=== PATIENT | female | born 1990 | race Caucasian/White ===

== ENCOUNTER 2018-04-14 18:32 | Emergency (ER) | payer SELFPAY ==
--- NOTE | 2018-04-14 19:00 | EDPHYS ---
Physician Documentation [facility] Name: Yesica Rae Age: 28 yrs Sex: Female : 1990 Arrival Date: 04/14/2018 Time: 18:35 Bed 17 Private MD: ED Physician Gavino Willis HPI: 04/14 18:53 This 28 yrs old Female presents to ER via Ambulatory with complaints of cp Toothache. 18:53 The patient presents with pain. The problem is located in the left lower molar. Onset: cp The symptoms/episode began/occurred over 1 month ago. Duration: The symptoms are continuous. Associated signs and symptoms: Pertinent positives: pain, Pertinent negatives: chills, dysphagia, fever, inability to eat. Patient reports recently finishing course of antibiotics but has not followed up with dentist. 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 - Social history:: Smoking status: Patient uses tobacco products, smokes one-half pack cigarettes per day. - Ebola Screening: : No symptoms or risks identified at this time. ROS: 18:55 Eyes: Negative for injury, pain, redness, and discharge. cp 18:55 Constitutional: Negative for body aches, chills, fever, poor PO intake. 18:55 ENT: Positive for dental pain, Negative for drainage from ear(s), ear pain, difficulty swallowing, difficulty handling secretions. 18:55 Respiratory: Negative for cough, shortness of breath, wheezing. 18:55 Abdomen/GI: Negative for abdominal pain, nausea, vomiting, and diarrhea. 18:55 Skin: Negative for cellulitis, rash. 18:55 All other systems are negative. Exam: 18:56 Head/Face: Normocephalic, atraumatic. cp 18:56 Constitutional: The patient appears in no acute distress, alert, awake, non-toxic, well developed, well nourished. 18:56 Eyes: Periorbital structures: appear normal, Conjunctiva: normal, Lids and lashes: appear normal, bilaterally. 18:56 ENT: External ear(s): are unremarkable, Ear canal(s): are normal, clear, TM's: bulging, is not appreciated, bilaterally, dullness, bilaterally, erythema, is not appreciated, bilaterally, Nose: is normal, Mouth: Lips: moist, Oral mucosa: pink and intact, moist, Gums: normal with healthy appearance, Tongue: is normal, abscess, is not appreciated, drooling, is not appreciated, Posterior pharynx: Airway: no evidence of obstruction, patent, Tonsils: are normal in appearance, Uvula: midline, swelling, is not appreciated, erythema, is not appreciated, exudate, is not appreciated, Dental exam: abscess, is not appreciated, fractured teeth are noted, specifically the lower left second molar (#18), gum swelling, not appreciated, pain, that is mild, specifically in the lower left second molar (#18), Voice: is normal. 18:56 Neck: ROM/movement: is normal, is supple, without pain, no range of motions limitations, no nuchal rigidity, Lymph nodes: no appreciated lymphadenopathy. Vital Signs: 18:37 BP 139 / 94; Pulse 74; Resp 18; Temp 97.8; Pulse Ox 96% ; Weight 95.25 kg; Height 5 ft. sv 3 in. (160.02 cm); Pain 10/10; 18:37 Body Mass Index 37.20 (95.25 kg, 160.02 cm) sv MDM: 18:49 Patient medically screened. cp 18:55 Differential diagnosis: dental caries, dental abscess, pericoronitis, aphthous ulcers. cp 18:58 Data reviewed: vital signs, nurses notes, and as a result, I will discharge patient. cp 18:58 Counseling: I had a detailed discussion with the patient and/or guardian regarding: the cp historical points, exam findings, and any diagnostic results supporting the discharge/admit diagnosis, the need for outpatient follow up, for definitive care, a dentist, to return to the emergency department if symptoms worsen or persist or if there are any questions or concerns that arise at home. Administered Medications: No medications were administered Disposition: 04/14/18 19:00 Discharged to Home. Impression: Jaw pain - Left Lower Molar. - Condition is Stable. - Discharge Instructions: Dental Pain. - Prescriptions for Clindamycin HCl 150 mg Oral Capsule - take 1 capsule by ORAL route every 6 hours for 10 days; 40 capsule. Diclofenac Sodium 75 mg Oral Tablet, Delayed Release (E.C.) - take 1 tablet by ORAL route 2 times per day do not take with OTC ibuprofen or naproxen; 20 tablet. - Medication Reconciliation Form, Thank You Letter, Antibiotic Education, Prescription Opioid Use form. - Follow up: Manpreet Tejada DDS; When: 2 - 3 days; Reason: Recheck today's complaints. - Problem is new. - Symptoms are unchanged. Addendum: 04/23/2018 21:06 Co-signature as Attending Physician, Gavino Willis MD. r n Signatures: Jen Clarke RN RN Gavino Gil MD MD rn Ellis Mcfarlane PA PA cp Davies, Jonathon RN RN jd3 Corrections: (The following items were deleted from the chart) 04/14 19:35 19:00 04/14/2018 19:00 Discharged to Home. Impression: Jaw pain - Left Lower Molar. jd3 Condition is Stable. Forms are Medication Reconciliation Form, Thank You Letter, Antibiotic Education, Prescription Opioid Use. Follow up: Manpreet Tejada; When: 2 - 3 days; Reason: Recheck today's complaints. Problem is new. Symptoms are unchanged. cp
--- NOTE | 2018-04-14 19:00 | ER ---
Nurse's Notes [facility] Name: Yesica Rae Age: 28 yrs Sex: Female : 1990 Arrival Date: 04/14/2018 Time: 18:35 Bed 17 Private MD: Diagnosis: Jaw pain-Left Lower Molar Presentation: 04/14 18:36 Presenting complaint: Patient states: left bottom tooth pain that started about a month sv ago. Pt was prescribed Amoxicillin and hasn't f/u with a dentist. Transition of care: patient was not received from another setting of care. Onset of symptoms was February 2018. Care prior to arrival: None. 18:36 Method Of Arrival: Ambulatory sv 18:36 Acuity: BEAU 4 sv 18:40 Risk Assessment: Do you want to hurt yourself or someone else? Patient reports no hj desire to harm self or others. Initial Sepsis Screen: Does the patient meet any 2 criteria? No. Patient's initial sepsis screen is negative. Does the patient have a suspected source of infection? No. Patient's initial sepsis screen is negative. Triage Assessment: 18:40 General: Appears in no apparent distress. uncomfortable, Behavior is calm, cooperative, hj appropriate for age. Pain: Complains of pain in tooth. EENT: Reports pain in tooth. 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 - Social history:: Smoking status: Patient uses tobacco products, smokes one-half pack cigarettes per day. - Ebola Screening: : No symptoms or risks identified at this time. Screenin:39 Abuse screen: Denies threats or abuse. Denies injuries from another. Nutritional hj screening: No deficits noted. Tuberculosis screening: No symptoms or risk factors identified. Fall Risk None identified. Assessment: 18:40 Reassessment: see triage assesment;. hj 19:03 General: Appears in no apparent distress. uncomfortable, Behavior is calm, cooperative, jd3 appropriate for age. Pain: Complains of pain in lower left second molar Pain currently is 10 out of 10 on a pain scale. Quality of pain is described as sharp. Neuro: Level of Consciousness is awake, alert, obeys commands, Oriented to person, place, time, situation, Appropriate for age. 19:03 Cardiovascular: Capillary refill < 3 seconds Patient's skin is warm and dry. jd3 Respiratory: Airway is patent Respiratory effort is even, unlabored, Respiratory pattern is regular, symmetrical. GI: No signs and/or symptoms were reported involving the gastrointestinal system. : No signs and/or symptoms were reported regarding the genitourinary system. EENT: Oral mucosa is moist. Dental caries noted in lower left second molar (#18). Derm: Skin is intact, Skin is dry, Skin is normal, Skin temperature is warm. Musculoskeletal: Circulation, motion, and sensation intact. Range of motion: intact in all extremities. 19:34 Reassessment: Patient appears in no apparent distress at this time. Patient and/or jd3 family updated on plan of care and expected duration. Pain level reassessed. Patient is alert, oriented x 3, equal unlabored respirations, skin warm/dry/pink. pt reported understanding of discharge instructions, even and steady gait upon discharge. Vital Signs: 18:37 BP 139 / 94; Pulse 74; Resp 18; Temp 97.8; Pulse Ox 96% ; Weight 95.25 kg; Height 5 ft. sv 3 in. (160.02 cm); Pain 10/10; 18:37 Body Mass Index 37.20 (95.25 kg, 160.02 cm) sv ED Course: 18:35 Patient arrived in ED. mr 18:37 Triage completed. sv 18:38 Arm band placed on right wrist. sv 18:39 David Krueger, RN is Primary Nurse. hj 18:40 Patient has correct armband on for positive identification. Bed in low position. Call hj light in reach. Side rails up X 1. 18:49 Ellis Mcfarlane PA is PHCP. cp 18:49 Gavino Willis MD is Attending Physician. cp 18:59 Manpreet Tejada DDS is Referral Physician. cp 19:06 No provider procedures requiring assistance completed. Patient did not have IV access jd3 during this emergency room visit. Administered Medications: No medications were administered Outcome: 19:00 Discharge ordered by . cp 19:32 Discharged to home ambulatory, with family. jd3 19:32 Condition: stable 19:32 Discharge instructions given to patient, family, Instructed on discharge instructions, follow up and referral plans. medication usage, Demonstrated understanding of instructions, follow-up care, medications, Prescriptions given X 2. 19:35 Patient left the ED. jd3 Signatures: Jen Clarke, RN Katie Thomas mr David Krueger RN RN hj Page, Corey, PA PA cp Davies, Jonathon, RN RN jd3
[2018-04-14 19:46] VITALS: BP 139/94; TEMP 97.8; O2SAT 96
== END 2018-04-14 19:35 | disposition home or self-care (01) ==
LOC: ER 18:32
DX: R68.84 Jaw pain (principal); K08.89 Other specified disorders of teeth and supporting structures; F17.220 Nicotine dependence, chewing tobacco, uncomplicated
CPT/HCPCS: 99282

== ENCOUNTER 2018-05-11 20:18 | Emergency (ER) | payer SELFPAY ==
[2018-05-11 21:05] LABS: Absolute Lymphocytes (CBC) 2.7 K/uL (0.7-4.9); Absolute Monocytes 0.5 K/uL (0.1-1.3); Absolute Neutrophil 5.6 K/uL (1.8-8.0); Basophils % 0.8 % (0-1.3); Eosinophils % 2.4 % (0-4.4); Hematocrit 41.1 % (36.0-45.0); Lymphocytes % 29.8 % (15.3-44.8); MCH 31.4 pg (27.0-35.0); MCV 92.7 fL (80-100); MPV 8.7 fL (7.6-11.3); Monocytes % 5.8 % (3.3-12.3); RBC Red Blood Cell Count 4.43 M/uL (3.86-4.86)
[2018-05-11 21:11] LABS: Protime INR 1.02
[2018-05-11 22:01] LABS: ALT/SGPT 25 U/L (12-78); AST/SGOT 15 U/L (15-37); Albumin 3.9 g/dL (3.4-5.0); Alkaline Phosphatase 64 U/L (45-117); BUN Blood Urea Nitrogen 17 mg/dL (7-18); Bicarbonate 26 mmol/L (21-32); Bilirubin Direct < 0.1 mg/dL (0-0.2); Bilirubin Total 0.1 mg/dL (0.2-1.0); CKMB Creatine Kinase MB < 1.0 ng/mL (0.3-3.6); Creatine Phosphokinase 71 U/L (26-192); Glucose Level 119 mg/dL (74-106); Magnesium 2.2 mg/dL (1.8-2.4); NT PRO-BNP 37 pg/mL (<125); Potassium 3.7 mmol/L (3.5-5.1); Protein, Total 7.6 g/dL (6.4-8.2); Sodium Level 143 mmol/L (136-145)
[2018-05-11 22:49] LABS: Urine Blood NEGATIVE (NEG); Urine Glucose NEGATIVE (NEG); Urine Protein NEGATIVE (NEG); Urine Specific Gravity 1.025 (1.005-1.030); Urine pH 6.5 (5.0-7.0)
--- NOTE | 2018-05-11 23:09 | ER ---
Nurse's Notes [facility] Name: Yesica Rae Age: 28 yrs Sex: Female : 1990 Arrival Date: 05/11/2018 Time: 20:21 Bed 20 Private MD: Diagnosis: Chest pain, unspecified Presentation: 05/11 20:35 Presenting complaint: Patient states: "I have been having chest pain on and off for the bs1 past week, and it goes down my left arm and sometime my right.". 20:35 Transition of care: patient was not received from another setting of care. Onset of bs1 symptoms was May 04, 2018. Risk Assessment: Do you want to hurt yourself or someone else? Patient reports no desire to harm self or others. Initial Sepsis Screen: Does the patient meet any 2 criteria? No. Patient's initial sepsis screen is negative. Does the patient have a suspected source of infection? No. Patient's initial sepsis screen is negative. Care prior to arrival: Medication(s) given: ASA, 81 mg, x 2. 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 - Social history:: Smoking status: Patient/guardian denies using tobacco. - Ebola Screening: : Patient negative for fever greater than or equal to 101.5 degrees Fahrenheit, and additional compatible Ebola Virus Disease symptoms Patient denies exposure to infectious person. Screenin:24 Abuse screen: Denies threats or abuse. Denies injuries from another. Nutritional bs1 screening: No deficits noted. Tuberculosis screening: No symptoms or risk factors identified. Fall Risk None identified. Assessment: 21:33 General: Appears in no apparent distress. uncomfortable, well groomed, Behavior is bs1 calm, cooperative, appropriate for age. Pain: Complains of pain in left side of chest Pain radiates to left arm Pain began gradually, 1 week, gradually got worse. Neuro: Level of Consciousness is awake, alert, obeys commands, Oriented to person, place, time, situation, Appropriate for age. Neuro: Reports numbness in left shoulder. Cardiovascular: Reports chest pain, Denies shortness of breath, Heart tones S1 S2 present Capillary refill < 3 seconds Patient's skin is warm and dry. Respiratory: Airway is patent Trachea midline Respiratory effort is even, unlabored, Respiratory pattern is regular, symmetrical. GI: No signs and/or symptoms were reported involving the gastrointestinal system. : No signs and/or symptoms were reported regarding the genitourinary system. EENT: No signs and/or symptoms were reported regarding the EENT system. Derm: Skin is intact. Musculoskeletal: Circulation, motion, and sensation intact. Capillary refill < 3 seconds, Range of motion: intact in all extremities. 22:00 Reassessment: Patient appears in no apparent distress at this time. Patient and/or bs1 family updated on plan of care and expected duration. Pain level reassessed. Patient is alert, oriented x 3, equal unlabored respirations, skin warm/dry/pink. Informed patient of POC/pending lab results. 23:15 Reassessment: Patient appears in no apparent distress at this time. Patient and/or bs1 family updated on plan of care and expected duration. Pain level reassessed. Patient is alert, oriented x 3, equal unlabored respirations, skin warm/dry/pink. Patient states understanding of POC/discharge instructions. Vital Signs: 20:45 BP 100 / 61; Pulse 72; Resp 23; Temp 98.3(O); Pulse Ox 96% on R/A; Weight 95.25 kg; bs1 Height 5 ft. 3 in. (160.02 cm); Pain 8/10; 21:45 BP 97 / 67; Pulse 72; Resp 16; Pulse Ox 99% on R/A; bs1 22:45 BP 105 / 68; Pulse 80; Resp 16; Pulse Ox 100% on R/A; bs1 20:45 Body Mass Index 37.20 (95.25 kg, 160.02 cm) bs1 ED Course: 20:21 Patient arrived in ED. es 20:32 Gee Donohue NP is PHCP. pm1 20:32 Hilario Vasquez MD is Attending Physician. pm1 20:42 Katerina Gil RN is Primary Nurse. bs1 20:45 Inserted saline lock: 22 gauge in right antecubital area, using aseptic technique. bs1 Blood collected. 20:54 XRAY Chest (1 view) In Process Unspecified. EDMS 20:58 Triage completed. bs1 22:00 Patient has correct armband on for positive identification. Bed in low position. Call bs1 light in reach. Side rails up X 1. quality assurance monitor on. Pulse ox on. NIBP on. 22:00 Warm blanket given. bs1 23:24 No provider procedures requiring assistance completed. Patient maintains SpO2 bs1 saturation greater than 95% on room air. 23:25 Arm band placed on right wrist. bs1 23:26 IV discontinued, bleeding controlled, No redness/swelling at site. Pressure dressing bs1 applied. Administered Medications: 23:20 Drug: TORadol 30 mg Route: IVP; Site: right antecubital; bs1 23:26 Follow up: Response: No adverse reaction bs1 Outcome: 23:07 Discharge ordered by MD. pm1 23:25 Discharged to home ambulatory, with family. bs1 23:25 Condition: stable 23:25 Discharge instructions given to patient, Instructed on discharge instructions, follow up and referral plans. Demonstrated understanding of instructions, follow-up care. 23:29 Patient left the ED. bs1 Signatures: Dispatcher [employer] EDDelicia Szymanski Patrick, MIRROR MAKER MIRROR MAKER pm1 Katerina Gil, RN RN bs1
--- NOTE | 2018-05-11 23:09 | EDPHYS ---
Physician Documentation [facility] Name: Yesica Rae Age: 28 yrs Sex: Female : 1990 Arrival Date: 05/11/2018 Time: 20:21 Bed 20 Private MD: ED Physician Hilario Vasquez HPI: 05/11 23:00 This 28 yrs old Female presents to ER via Ambulatory with complaints of Chest pm1 Pain. 23:00 The patient or guardian reports chest pain that is located primarily in the anterior pm1 aspect of right upper chest, anterior aspect of left upper chest and mid-sternal area. The pain radiates to the left shoulder. Associated signs and symptoms: Pertinent negatives: abdominal pain, diaphoresis, dizziness, headache, lightheadedness, nausea, palpitations, shortness of breath, vomiting. The chest pain is described as sharp. Duration: The patient or guardian reports a single episode, that is still ongoing, onset 7 days ago. Modifying factors: the symptoms are aggravated by Left and right arm movement. Severity of pain: in the emergency department the pain is unchanged. The patient has not experienced similar symptoms in the past. The patient has not recently seen a physician. 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 - Social history:: Smoking status: Patient/guardian denies using tobacco. - Ebola Screening: : Patient negative for fever greater than or equal to 101.5 degrees Fahrenheit, and additional compatible Ebola Virus Disease symptoms Patient denies exposure to infectious person. ROS: 23:00 Constitutional: Negative for fever, chills, and weight loss, Eyes: Negative for injury, pm1 pain, redness, and discharge, ENT: Negative for injury, pain, and discharge, Neck: Negative for injury, pain, and swelling. 23:00 Respiratory: Negative for shortness of breath, cough, wheezing, and pleuritic chest pain, Abdomen/GI: Negative for abdominal pain, nausea, vomiting, diarrhea, and constipation, Back: Negative for injury and pain, : Negative for injury, bleeding, discharge, and swelling, MS/Extremity: Negative for injury and deformity, Skin: Negative for injury, rash, and discoloration, Neuro: Negative for headache, weakness, numbness, tingling, and seizure. 23:00 Cardiovascular: Positive for chest pain, Negative for edema, palpitations. Exam: 23:00 Constitutional: This is a well developed, well nourished patient who is awake, alert, pm1 and in no acute distress. Head/Face: Normocephalic, atraumatic. Eyes: Pupils equal round and reactive to light, extra-ocular motions intact. Lids and lashes normal. Conjunctiva and sclera are non-icteric and not injected. Cornea within normal limits. Periorbital areas with no swelling, redness, or edema. ENT: Nares patent. No nasal discharge, no septal abnormalities noted. Tympanic membranes are normal and external auditory canals are clear. Oropharynx with no redness, swelling, or masses, exudates, or evidence of obstruction, uvula midline. Mucous membranes moist. Neck: Trachea midline, no thyromegaly or masses palpated, and no cervical lymphadenopathy. Supple, full range of motion without nuchal rigidity, or vertebral point tenderness. No Meningismus. Chest/axilla: Normal chest wall appearance and motion. Nontender with no deformity. No lesions are appreciated. Cardiovascular: Regular rate and rhythm with a normal S1 and S2. No gallops, murmurs, or rubs. Normal PMI, no JVD. No pulse deficits. Respiratory: Lungs have equal breath sounds bilaterally, clear to auscultation and percussion. No rales, rhonchi or wheezes noted. No increased work of breathing, no retractions or nasal flaring. Abdomen/GI: Soft, non-tender, with normal bowel sounds. No distension or tympany. No guarding or rebound. No evidence of tenderness throughout. Back: No spinal tenderness. No costovertebral tenderness. Full range of motion. Skin: Warm, dry with normal turgor. Normal color with no rashes, no lesions, and no evidence of cellulitis. MS/ Extremity: Pulses equal, no cyanosis. Neurovascular intact. Full, normal range of motion. 23:00 Neuro: Orientation: is normal, Motor: moves all fours. Vital Signs: 20:45 BP 100 / 61; Pulse 72; Resp 23; Temp 98.3(O); Pulse Ox 96% on R/A; Weight 95.25 kg; bs1 Height 5 ft. 3 in. (160.02 cm); Pain 8/10; 21:45 BP 97 / 67; Pulse 72; Resp 16; Pulse Ox 99% on R/A; bs1 22:45 BP 105 / 68; Pulse 80; Resp 16; Pulse Ox 100% on R/A; bs1 20:45 Body Mass Index 37.20 (95.25 kg, 160.02 cm) bs1 MDM: 20:36 Patient medically screened. pm1 23:00 ED course: Heart score = 0 and KIP = 0. pm1 23:07 Data reviewed: vital signs. Data interpreted: Pulse oximetry: on room air is 96 %. pm1 Interpretation: normal. Counseling: I had a detailed discussion with the patient and/or guardian regarding: the historical points, exam findings, and any diagnostic results supporting the discharge/admit diagnosis, lab results, radiology results, the need for outpatient follow up, to return to the emergency department if symptoms worsen or persist or if there are any questions or concerns that arise at home. 05/11 20:41 Order name: Basic Metabolic Panel; Complete Time: 22:10 pm05/11 20:41 Order name: CBC with Diff; Complete Time: 21: pm05/11 20:41 Order name: Ckmb; Complete Time: 22:10 pm05/11 20:41 Order name: CPK; Complete Time: 22:10 pm05/11 20:41 Order name: LFT's; Complete Time: 22:10 pm05/11 20:41 Order name: Magnesium; Complete Time: 22:10 pm05/11 20:41 Order name: NT PRO-BNP; Complete Time: 22:10 pm05/11 20:41 Order name: PT-INR; Complete Time: 21: pm05/11 20:41 Order name: Ptt, Activated; Complete Time: 21:31 pm05/11 20:41 Order name: Troponin (emerg Dept Use Only); Complete Time: 22:10 pm05/11 20:41 Order name: XRAY Chest (1 view) pm05/11 22:40 Order name: Urine Dipstick--Ancillary (enter results); Complete Time: 22:59 ms 05/11 22:40 Order name: Urine --Ancillary (enter results); Complete Time: 22:59 ms 05/11 20:41 Order name: Urine Test (obtain specimen); Complete Time: 23:23 pm1 05/11 20:41 Order name: EKG; Complete Time: 20:42 pm1 05/11 20:41 Order name: Cardiac monitoring; Complete Time: 21:06 pm1 05/11 20:41 Order name: EKG - Nurse/Tech; Complete Time: 21:06 pm1 05/11 20:41 Order name: IV Saline Lock; Complete Time: 21:06 pm1 05/11 20:41 Order name: Labs collected and sent; Complete Time: 21:06 pm1 05/11 20:41 Order name: O2 Per Protocol; Complete Time: 21:06 pm1 05/11 20:41 Order name: O2 Sat Monitoring; Complete Time: 21:06 pm1 05/11 20:41 Order name: Urine Dipstick-Ancillary (obtain specimen); Complete Time: 23:22 pm1 Administered Medications: 23:20 Drug: TORadol 30 mg Route: IVP; Site: right antecubital; bs1 23:26 Follow up: Response: No adverse reaction bs1 Disposition: 05/12 03:14 Co-signature as Attending Physician, Hilario Vasquez MD I agree with the assessment and tw4 plan of care. Attestation: The patient's history, exam findings, diagnostics, and a summary of any interventions or procedures was reviewed in detail with Gee Donohue NP. Disposition: 05/11/18 23:07 Discharged to Home. Impression: Chest pain, unspecified. - Condition is Stable. - Discharge Instructions: Nonspecific Chest Pain. - Medication Reconciliation Form, Thank You Letter form. - Follow up: Emergency Department; When: As needed; Reason: Worsening of condition. Follow up: Private Physician; When: 2 - 3 days; Reason: Recheck today's complaints, Continuance of care, Re-evaluation by your physician. - Problem is new. - Symptoms have improved. Signatures: Dispatcher [employer] Gee Brian NP YARN INSPECTOR pm1 Katerina iGl, GERRY RN bs1 Hilario Vasquez MD MD tw4 Corrections: (The following items were deleted from the chart) 05/11 23:29 23:07 05/11/2018 23:07 Discharged to Home. Impression: Chest pain, unspecified. bs1 Condition is Stable. Forms are Medication Reconciliation Form, Thank You Letter, Antibiotic Education, Prescription Opioid Use. Follow up: Emergency Department; When: As needed; Reason: Worsening of condition. Follow up: Private Physician; When: 2 - 3 days; Reason: Recheck today's complaints, Continuance of care, Re-evaluation by your physician. Problem is new. Symptoms have improved. pm1
[2018-05-11] MEDS ORDERED: KETOROLAC 30 MG/ML INJ ONE (23:18)
[2018-05-11 23:46] VITALS: TEMP 98.3
[2018-05-11 23:47] VITALS: BP 105/68; O2SAT 100
--- NOTE | 2018-05-12 06:30 | RAD REPORT ---
EXAM DESCRIPTION: RAD - Chest Single View - 05/11/2018 9:33 pm CLINICAL HISTORY: Chest pain COMPARISON: July 2010 TECHNIQUE: AP portable chest image was obtained 2112 hours . FINDINGS: Lungs are clear. Lung markings are similar to comparison. Heart and vasculature are normal . No measurable pleural effusion and no pneumothorax. No gross bony abnormality seen. No acute aortic findings suspected. IMPRESSION: No acute cardiopulmonary process. No significant interval change.
--- NOTE | 2018-05-12 07:20 | EKG ---
Test Date: 2018-05-11 Test Time: 20:56:03 Cement Breaker: JESSICA MEASUREMENT RESULTS: Intervals: Rate: 69 ND: 136 QRSD: 84 QT: 394 QTc: 422 [place]: P: 9 ND: 136 QRS: 18 T: 9 INTERPRETIVE STATEMENTS: Normal sinus rhythm with sinus arrhythmia Normal ECG Compared to ECG 06/17/2011 22:44:47 No significant changes Electronically Signed On 05-12-18 07:19:38 CDT by Carlos Anderson
== END 2018-05-11 23:29 | disposition home or self-care (01) ==
LOC: ER 20:18
DX: R07.9 Chest pain, unspecified (principal)
CPT/HCPCS: 36415; 71045; 80048; 80076; 81003; 81025; 82550; 82553; 83735; 83880; 84484; 85025; 85610; 85730; 93005; 96374; 99285